=== PATIENT | female | born 1955 | race Caucasian/White ===

== ENCOUNTER → 2020-12-06 | Outpatient (CLI) | payer MEDICARE ==
[~2020-12-06] MED LIST: ADULT LOW DOSE81 MG PO; COLACE100 MG PO; FAMOTIDINE PO; FAMOTIDINE20 MG PO; FISH OIL 1,2001 EACH PO; IBUPROFEN800 MG PO; LISINOPRIL20 MG PO; PERCOCET 5/325 T1 EA PO; PRAVASTATIN SOD20 MG PO; VITAMIN D21250 MCG PO
[2020-12-06 09:42] LABS: HEMOGLOBIN 14.7 gm/dl (12.3-15.3); RED BLOOD COUNT 4.81 M/UL (4.00-5.10); WHITE BLOOD COUNT 5.4 K/UL (4.5-11.0)
[2020-12-06 10:07] LABS: BUN/CREATININE RATIO 20 (0-10)
== END ==
LOC: OPSV2 08:00
PROVIDERS: Obstetrics & Gynecology
DX: Z01.818 Encounter for other preprocedural examination (principal); D21.9 Benign neoplasm of connective and other soft tissue, unspecified
CPT/HCPCS: 36415; 80053; 81001; 85025; 93005

== ENCOUNTER 2020-12-09 06:46 | Day surgery (SDC) | payer MEDICARE ==
[~2020-12-09] VITALS: Ht 160 cm; Wt 70.8 kg
[~2020-12-09 06:46] MED LIST changes: -COLACE100 MG PO; -IBUPROFEN800 MG PO; -PERCOCET 5/325 T1 EA PO
[2020-12-10] MEDS ORDERED: IBUPROFEN800 MG PO (09:21)
[2020-12-10] MEDS ORDERED: PERCOCET 5/325 T1 EA PO (09:21)
[2020-12-10] MEDS ORDERED: COLACE100 MG PO (09:21)
== END 2020-12-10 10:41 | disposition home or self-care (01) ==
LOC: OR 06:46 → ZOBSOF 06:46 → UNDOADMIN 06:46 → EDSTATUS 09:00 → OB 10:53 → ZOBSOF 10:53 → OB 12-10 10:41 → OR 12-10 10:41
PROVIDERS: Obstetrics & Gynecology
PROC: 0UT20ZZ Resection of Bilateral Ovaries, Open Approach (ICD-10-PCS; 2020-12-09)
PROC: 0UT70ZZ Resection of Bilateral Fallopian Tubes, Open Approach (ICD-10-PCS; 2020-12-09)
PROC: 0UT90ZZ Resection of Uterus, Open Approach (ICD-10-PCS; principal; 2020-12-09 09:00)
DX: N80.0 Endometriosis of uterus (principal); D25.9 Leiomyoma of uterus, unspecified; N84.0 Polyp of corpus uteri; N88.8 Other specified noninflammatory disorders of cervix uteri; N73.6 Female pelvic peritoneal adhesions (postinfective); N83.8 Other noninflammatory disorders of ovary, fallopian tube and broad ligament; N83.202 Unspecified ovarian cyst, left side; N83.201 Unspecified ovarian cyst, right side; I10 Essential (primary) hypertension; E78.5 Hyperlipidemia, unspecified; K21.9 Gastro-esophageal reflux disease without esophagitis; K44.9 Diaphragmatic hernia without obstruction or gangrene; M85.80 Other specified disorders of bone density and structure, unspecified site; Z20.822 Contact with and (suspected) exposure to COVID-19; Z85.3 Personal history of malignant neoplasm of breast; Z98.51 Tubal ligation status; Z91.040 Latex allergy status; Z79.82 Long term (current) use of aspirin; Z79.899 Other long term (current) drug therapy
CPT/HCPCS: 0; 36415; 71045; 80053; 81001; 85025; 93005; J0690; J1100; J1885; J2001; J2250; J2270; J2405; J2550; J2704; J2710; J3010; J7120; U0003